=== PATIENT | male | born 1990 | race African-American/Black ===

== ENCOUNTER 2018-08-23 19:00 | Emergency (ER) | payer MEDICAID ==
[~2018-08-23] VITALS: Ht 172.7 cm; Wt 129.6 kg
[~2018-08-23 19:00] MED LIST: ALBU8HFA4 IH
[2018-08-23] MEDS ORDERED: ALBUTEROL SULFATE 5 MG/ML 20 ML NEB SOLN [BULK] NEB ONE (19:15)
[2018-08-23] MEDS ORDERED: IPRATROPIUM BROMIDE 0.5 MG/2.5 ML NEB SOLUTION NEB ONE ×2 (19:15→20:45)
[2018-08-23] MEDS ORDERED: ACETAMINOPHEN 325 MG TABLET PO ONE (19:45)
[2018-08-23] MEDS ORDERED: PredniSONE 20 MG TABLET PO ONE (19:45)
[2018-08-23] MEDS ORDERED: ALBUTEROL SULFATE 2.5 MG/0.5 ML NEB SOLUTION NEB ONE (20:45)
[2018-08-23 21:00] VITALS: BP 120/75
== END 2018-08-23 21:10 | disposition home or self-care (01) ==
LOC: EMS 19:01
DX: J45.909 Unspecified asthma, uncomplicated (principal); Z88.0 Allergy status to penicillin
CPT/HCPCS: 71045; 87430; 94640; 99284; J7512

== ENCOUNTER 2021-12-10 18:44 | Emergency (ER) | payer MEDICAID ==
[~2021-12-10] VITALS: Ht 172.7 cm; Wt 136.4 kg
[2021-12-10] MEDS ORDERED: PredniSONE 20 MG TABLET PO ONE (20:15)
[2021-12-10] MEDS ORDERED: IPRATROPIUM BROMIDE 0.5 MG/2.5 ML NEB SOLUTION NEB ONE (20:15)
[2021-12-10] MEDS ORDERED: ALBUTEROL SULFATE 5 MG/ML 20 ML NEB SOLN [BULK] NEB ONE ×2 (20:15→21:30)
[2021-12-10] MEDS ORDERED: EPINEPHrine 1:1,000 [1 MG/ML] VIAL SQ ONE (21:30)
[2021-12-10] MEDS ORDERED: BECL10.62 IH (22:36)
[2021-12-10] MEDS ORDERED: AUD NEB (22:36)
[2021-12-10] MEDS ORDERED: ALBU8HFA IH (22:36)
[2021-12-10] MEDS ORDERED: PRED-554 PO (22:36)
[2021-12-10 23:30] VITALS: BP 141/88
== END 2021-12-10 23:42 | disposition home or self-care (01) ==
LOC: EMS 18:47
DX: J45.901 Unspecified asthma with (acute) exacerbation (principal); F10.20 Alcohol dependence, uncomplicated; Z88.0 Allergy status to penicillin
CPT/HCPCS: 99285; 94644; 96372; J0171; J7512